=== PATIENT | male | born 1965 | race Caucasian/White ===

== ENCOUNTER → 2017-09-04 | Outpatient (CLI) | payer BC, OTHER ==
--- NOTE | 2017-09-04 16:16 | XR ---
EXAMINATION TYPE: XR knee complete LT DATE OF EXAM: 09/04/2017 CLINICAL HISTORY: pain TECHNIQUE: Three views of the left knee are obtained. COMPARISON: None. FINDINGS: There is no acute fracture/dislocation. The tri-compartment joint spaces appear within no rmal limits. The overlying soft tissue appears unremarkable. Small suprapatellar joint effusion note d. IMPRESSION: There is no acute fracture or dislocation ICD 10 NO FRACTURE, INITIAL EVALUATION
== END | disposition home or self-care (01) ==
LOC: RADXRYALE 15:51
PROVIDERS: ATTEND Physician Assistant Medical
DX: M25.562 Pain in left knee (principal)

== ENCOUNTER → 2022-11-09 | Outpatient (CLI) | payer OTHER, BC ==
--- NOTE | 2022-11-09 17:14 | XR ---
EXAMINATION TYPE: XR ankle complete LT DATE OF EXAM: 11/09/2022 5:09 PM INDICATION: Patient age:Male; 57 years old; Reason for study: [id number] LT ANKLE PAIN; [facility]. COMPARISON: None TECHNIQUE: The left ankle is imaged in frontal, lateral and oblique projections. FINDINGS: There is no evidence of acute osseous pathology. The joint spaces are well-preserved without evidenc e of subluxation or dislocation. Kager's fat pad is intact. Soft tissues are within normal limits. No radiopaque foreign bodies are identified. Calcaneal plantar spurring present. IMPRESSION: No evidence of acute fracture.
== END | disposition home or self-care (01) ==
LOC: RADXRYALE 16:43
PROVIDERS: ATTEND Physician Assistant
DX: M25.572 Pain in left ankle and joints of left foot (principal)

== ENCOUNTER 2024-02-06 11:10 | Day surgery (SDC) | payer BC, OTHER ==
[2024-01-31 13:57] VITALS: BMI 26.5
--- NOTE | 2024-02-05 13:01 | HP ---
HISTORY AND PHYSICAL DATE OF SURGERY: 02/06/2024. HISTORY OF PRESENT ILLNESS: Amandeep Coto is a patient seen with a right hand ring finger area Dupuytren's contracture. We discussed options. He elected to proceed with a right hand partial palmar fasciectomy. Consent was obtained. PAST MEDICAL HISTORY: Noncontributory. PAST SURGICAL HISTORY: Noncontributory. DAILY MEDICATIONS: None reported. SOCIAL HISTORY: Denies tobacco use. PHYSICAL EVALUATION OF THE RIGHT HAND: He has about a 20 degrees contracture of the right ring finger with an obvious Dupuytren's contracture along the palmar aspect of his hand. He has good perfusion sensation distally. There are no other contractures noted. IMAGING STUDIES: Radiographs of the right hand revealed mild osteoarthritis. IMPRESSION: Right hand Dupuytren's contracture. PLAN: Right hand partial palmar fasciectomy. MMODL / IJN: [id number] /
[~2024-02-06 11:10] MED LIST: HYDROmorphone 0.5 MG/0.5 ML SYRINGE IVP PRN; LIDOCAINE 1% (10MG/ML) FOR IV START INTRADERMA PRN; MIDAZOLAM 2 MG/2 ML VIAL IV PRN; fentaNYL (PF) 50 MCG/ML 2 ML AMP IVP PRN
[2024-02-06 11:42] VITALS: RESP 16
[2024-02-06] MEDS: IV FLUID CONTINUATION 1,000 ML IV ONE (11:43)
[2024-02-06] MEDS: LACTATED RINGERS 1,000 ML IV SCH (12:01)
[2024-02-06] MEDS: DEXAMETHASONE SOD PHOSPHATE 4 MG/ML 1 ML VIAL IV ONE (12:01)
[2024-02-06] MEDS: ONDANSETRON 4 MG/2 ML VIAL IVP ONE (12:01)
[2024-02-06] MEDS ORDERED: PROPOFOL 10 MG/ML 20 ML VIAL IV ONE (12:55)
[2024-02-06] MEDS ORDERED: fentaNYL (PF) 50 MCG/ML 2 ML AMP ONE (12:55)
[2024-02-06] MEDS ORDERED: LIDOCAINE 1% INJ 10MG/ML (20 ML MDV) ONE (12:55)
[2024-02-06] MEDS ORDERED: KETAMINE HCL IN 0.9 % NACL 50 MG/5 ML SYRINGE ONE (12:55)
[2024-02-06] MEDS ORDERED: MIDAZOLAM 2 MG/2 ML VIAL ONE (12:55)
[2024-02-06] MEDS: BUPIVACAINE (PF) 0.25% 30 ML VIAL SQ ONE ×2 (13:13→13:31)
--- NOTE | 2024-02-06 13:41 | P.OP ---
Date of Procedure: 02/06/24 Preoperative Diagnosis: Right hand Dupuytren's contracture Postoperative Diagnosis: Right hand Dupuytren's contracture Procedure(s) Performed: Right hand partial palmar fasciectomy Anesthesia: CAROLINE local Surgeon: Rashi Loya Motion Picture Camera Lens Technician #1: Isrrael Trinh Estimated Blood Loss (ml): 2 Pathology: none sent Condition: stable Disposition: PACU Indications for Procedure: 58-year-old patient seen with a symptomatic right hand Dupuytren's contracture. After treatment options were discussed, he elected to proceed with right hand partial palmar fasciectomy. Consent was obtained. Operative Findings: See description of procedure Description of Procedure: Patient was taken to the operative suite. He received appropriate preoperative IV antibiotics. He underwent a general anesthetic by the department of anesthesia. A well-padded tourniquet placed proximal right upper extremity. Right upper extremity prepped and draped in a normal sterile orthopedic fashion. We elevated the extremity insufflated the tourniquet to 250. I now made a Jose Alberto/zigzag incision along the area of the Dupuytren's contracture sharply through skin. With the assistance of [place] STORM providing appropriate re traction I was able to identify the contracture and carefully dissected out. I followed it proximally and distally and then clipped it. The abnormal fascial tissue was now excised without difficulty. I explored the wound. I could see no other significant abnormal looking fascial tissue. I did use electrocautery for some hemostasis. The wound was copiously irrigated with saline solution. The skin margins were approximated with nylon suture. We applied sterile dressings. The tourniquet was released. There was immediate capillary refill of all digits noted. Sterile dressings were applied. The patient was now awakened, transferred to a bed and recovery in stable condition. [place] STORM assisted in all aspects of the surgery.
[2024-02-06 14:10] VITALS: TEMP 97.4
[2024-02-06 14:39] VITALS: BP 127/81; PULSE 61
== END 2024-02-06 15:12 | disposition home or self-care (01) ==
LOC: OR 11:10
PROVIDERS: ATTEND Orthopaedic Surgery
DX: M72.0 Palmar fascial fibromatosis [Dupuytren] (principal)